=== PATIENT | female | born 2000 | race Hispanic/Latino ===

== ENCOUNTER 2022-01-17 09:56 | Outpatient (CLI) | payer OTHER | END 2022-01-17 09:57 | disposition home or self-care (01) | LOC: CSHULT 09:56 | PROVIDERS: ATTEND Family Medicine | DX: Z34.03 Encounter for supervision of normal first pregnancy, third trimester (principal); Z3A.29 29 weeks gestation of pregnancy | CPT/HCPCS: 76805 ==

== ENCOUNTER 2022-02-04 17:48 | Observation (INO) | payer OTHER ==
[2022-02-04] MEDS ORDERED: Promethazine HCl 25 MG/ML VIAL IM PRN (18:24)
[2022-02-04] MEDS ORDERED: hydrALAZINE 20 MG/ML VIAL SLOW IVP PRN (18:24)
[2022-02-04] MEDS ORDERED: Ondansetron PF 4 MG/2 ML Vial IVP PRN (18:24)
[2022-02-04] MEDS: Acetaminophen 500 MG TAB PO PRN (19:41)
[2022-02-04 21:05] LABS: Mean Corpuscular HGB CONC 34.1 g/dL (32.0-36.0); Mean Corpuscular Hemoglobin 28.9 pg (27.0-33.0); Mean Corpuscular Volume 84.7 fl (81.6-98.3); Mean Platelet Volume 10.6 fl (7.4-10.4); Platelet Count 181 10x3/uL (150-450); RBC Distribution Width 13.3 % (11.5-14.5); Red Blood Cell (RBC) Count 3.46 10x6/uL (3.90-5.03)
[2022-02-04 21:45] LABS: ALT (SGPT) 14 U/L (8-55); AST (SGOT) 15 U/L (5-34); Albumin 3.1 g/dL (3.5-5.0); Alkaline Phosphatase 111 U/L (40-110); Anion Gap 12 mmol/L (10-20); BUN (Urea Nitrogen) 7 mg/dL (7.0-18.7); Bilirubin, Total 0.3 mg/dL (0.2-1.2); Calc. Creatinine Clearance 0 mL/min (70-130); Calcium 8.7 mg/dL (7.8-10.44); Carbon Dioxide 22 mmol/L (22-29); Chloride 106 mmol/L (98-107); Estimated GFR 128; Globulin 2.8 g/dL (2.4-3.5); Glucose 131 mg/dL (70-105); Potassium 3.7 mmol/L (3.5-5.1); Protein, Total 5.9 g/dL (6.0-8.3); Sodium 136 mmol/L (136-145)
[2022-02-05] MEDS: Acetaminophen 500 MG TAB PO PRN (04:34)
[2022-02-07 11:37] VITALS: BMI 28.8
[2022-02-07 11:39] VITALS: BP 108/62; TEMP 98.4
== END 2022-02-05 14:50 | disposition home health service (06) ==
LOC: CSHLD/OP 17:48 → CSHANTE 20:41 → INTOOBSV 20:41
PROVIDERS: ADMIT Family Medicine; ATTEND Family Medicine
DX: O99.413 Diseases of the circulatory system complicating pregnancy, third trimester (principal); R00.2 Palpitations; O99.343 Other mental disorders complicating pregnancy, third trimester; F41.1 Generalized anxiety disorder; Z3A.29 29 weeks gestation of pregnancy
CPT/HCPCS: 80053; 85027; 93005; 93010; 93306; 99285

== ENCOUNTER 2022-03-10 20:20 | Day surgery (SDC) | payer OTHER ==
[2022-03-10] MEDS ORDERED: hydrALAZINE 20 MG/ML VIAL SLOW IVP PRN (20:48)
[2022-03-10 20:51] VITALS: BMI 31.9
[2022-03-10 22:16] LABS: Bilirubin Neg (Negative); Blood, Urine 50 (Negative); CAUTI Indications for Culture Dysuria,urgency,freq; Clarity Cloudy (Clear); Glucose, Urine (Dipstick) Normal (Negative); Ketone, Urine 5 mg/dL (Negative); Leukocyte 25 (Negative); Nitrite Negative (Negative); Protein, Urine (Dipstick) 30 mg/dl (Neg-Trace)
[2022-03-10 22:17] LABS: #Monocytes 0.4 10x3/uL (0.0-1.1); #Neutrophils 4.3 10x3/uL (1.5-8.4); %Basophils 0.2 % (0.0-2.0); %Eosinophils 0.4 % (0.0-6.0); %Lymphocytes 17.5 % (18.0-47.0); %Monocytes 6.7 % (0.0-10.0); %Neutrophils 74.8 % (40.0-75.0); Hemoglobin 9.6 g/dL (12.0-15.5); Mean Corpuscular HGB CONC 33.1 g/dL (32.0-36.0); Mean Corpuscular Hemoglobin 26.4 pg (27.0-33.0); Mean Corpuscular Volume 79.9 fl (81.6-98.3); Mean Platelet Volume 11.6 fl (7.4-10.4); Platelet Count 175 10x3/uL (150-450); RBC Distribution Width 13.6 % (11.5-14.5); Red Blood Cell (RBC) Count 3.63 10x6/uL (3.90-5.03); White Blood Cell (WBC) Count 5.7 10x3/uL (3.5-10.5)
[2022-03-10 22:24] LABS: Urine Culture Reflex No No
[2022-03-10 22:29] LABS: Bacteria/HPF Rare-Few HPF (None Seen); Renal Epithelial 0-3 HPF (None Seen)
[2022-03-10 22:31] LABS: ALT (SGPT) 11 U/L (8-55); AST (SGOT) 19 U/L (5-34); Alkaline Phosphatase 151 U/L (40-110); Anion Gap 13 mmol/L (10-20); BUN (Urea Nitrogen) 9 mg/dL (7.0-18.7); Bilirubin, Total 0.3 mg/dL (0.2-1.2); Calc. Creatinine Clearance 138 mL/min (70-130); Calcium 9.5 mg/dL (7.8-10.44); Carbon Dioxide 21 mmol/L (22-29); Chloride 106 mmol/L (98-107); Estimated GFR 99; Globulin 3.1 g/dL (2.4-3.5); Glucose 108 mg/dL (70-105); Potassium 3.7 mmol/L (3.5-5.1); Protein, Total 6.1 g/dL (6.0-8.3); Sodium 136 mmol/L (136-145)
[2022-03-10 22:31] LABS: Creatinine, Urine 256.34 mg/dL (47-110)
== END 2022-03-10 22:55 | disposition home or self-care (01) ==
LOC: CSHLD/OP 20:20
PROVIDERS: ATTEND Family Medicine
DX: O60.03 Preterm labor without delivery, third trimester (principal); Z3A.36 36 weeks gestation of pregnancy; Z79.899 Other long term (current) drug therapy
CPT/HCPCS: 80053; 81001; 82570; 84156; 85025

== ENCOUNTER 2022-03-12 10:25 | Day surgery (SDC) | payer OTHER ==
[2022-03-12] MEDS ORDERED: Ondansetron PF 4 MG/2 ML Vial IVP PRN (10:52)
[2022-03-12] MEDS ORDERED: Lactated Ringer's 1,000 ML IV SCH ×2 (11:00)
[2022-03-12] MEDS ORDERED: Acetaminophen 500 MG TAB PO SCH (11:00)
[2022-03-12 11:26] VITALS: BP 125/66; TEMP 101.2
[2022-03-12 11:35] VITALS: BMI 31.9
[2022-03-12 12:04] LABS: SARS-CoV-2 NAA Rapid Test Not Detected (NotDetected)
[2022-03-12 12:17] LABS: Bilirubin 1+ (Negative); Blood, Urine 25 (Negative); CAUTI Indications for Culture Fever or rigors; Clarity Cloudy (Clear); Glucose, Urine (Dipstick) Normal (Negative); Ketone, Urine 50 mg/dL (Negative); Leukocyte 25 (Negative); Nitrite Negative (Negative); Protein, Urine (Dipstick) 100 mg/dl (Neg-Trace); Specific Gravity, Urine 1.025 (1.005-1.030)
[2022-03-12 12:24] LABS: Urine Culture Reflex No No
[2022-03-12 12:25] LABS: Bacteria/HPF 1+ HPF (None Seen)
[2022-03-12] MEDS ORDERED: Calcium Carbonate 500 MG ChewTAB PO SCH (13:45)
[2022-03-12 14:01] LABS: Bilirubin Neg (Negative); Blood, Urine Negative (Negative); Clarity Clear (Clear); Glucose, Urine (Dipstick) Normal (Negative); Ketone, Urine 50 mg/dL (Negative); Leukocyte Negative (Negative); Nitrite Negative (Negative); Protein, Urine (Dipstick) Negative (Neg-Trace); Urobilinogen Normal mg/dL (Less than 2); pH, Urine 6.5 (5.0-9.0)
[2022-03-12 14:12] LABS: #Monocytes 0.2 10x3/uL (0.0-1.1); #Neutrophils 5.6 10x3/uL (1.5-8.4); %Basophils 0.2 % (0.0-2.0); %Lymphocytes 4.2 % (18.0-47.0); %Monocytes 2.8 % (0.0-10.0); %Neutrophils 92.6 % (40.0-75.0); Hemoglobin 10.1 g/dL (12.0-15.5); Mean Corpuscular HGB CONC 33.8 g/dL (32.0-36.0); Mean Corpuscular Hemoglobin 26.9 pg (27.0-33.0); Mean Corpuscular Volume 79.5 fl (81.6-98.3); Mean Platelet Volume 12.3 fl (7.4-10.4); Platelet Count 167 10x3/uL (150-450); RBC Distribution Width 14.2 % (11.5-14.5); Red Blood Cell (RBC) Count 3.76 10x6/uL (3.90-5.03)
== END 2022-03-12 14:40 | disposition home health service (06) ==
LOC: CSHLD/OP 10:25
PROVIDERS: ATTEND Family Medicine
DX: O26.893 Other specified pregnancy related conditions, third trimester (principal); R50.9 Fever, unspecified; O21.2 Late vomiting of pregnancy; Z3A.36 36 weeks gestation of pregnancy; Z20.822 Contact with and (suspected) exposure to COVID-19
CPT/HCPCS: 81001; 85025; 96360; 96361; 96375; 99285; J2405

== ENCOUNTER 2022-05-13 01:34 | Inpatient (IN) | payer OTHER ==
[2022-05-13 02:47] LABS: #Eosinphils 0.1 10x3/uL (0.0-0.5); #Monocytes 0.5 10x3/uL (0.0-1.1); %Basophils 0.2 % (0.0-2.0); %Eosinophils 1.3 % (0.0-6.0); %Lymphocytes 11.6 % (18.0-47.0); %Monocytes 5.5 % (0.0-10.0); %Neutrophils 81.2 % (40.0-75.0); Hemoglobin 11.5 g/dL (12.0-15.5); Mean Corpuscular Hemoglobin 26.3 pg (27.0-33.0); Mean Corpuscular Volume 79.9 fl (81.6-98.3); Mean Platelet Volume 9.4 fl (7.4-10.4); Platelet Count 329 10x3/uL (150-450); RBC Distribution Width 14.7 % (11.5-14.5); Red Blood Cell (RBC) Count 4.37 10x6/uL (3.90-5.03); White Blood Cell (WBC) Count 8.6 10x3/uL (3.5-10.5)
[2022-05-13] MEDS ORDERED: Ketorolac Tromethamine 30 MG/ML VIAL ONE ×3 (03:03→12:46)
[2022-05-13 03:04] LABS: ALT (SGPT) 183 U/L (8-55); AST (SGOT) 325 U/L (5-34); Albumin 4.4 g/dL (3.5-5.0); Alkaline Phosphatase 187 U/L (40-110); Anion Gap 15 mmol/L (10-20); BUN (Urea Nitrogen) 15 mg/dL (7.0-18.7); Bilirubin, Total 0.7 mg/dL (0.2-1.2); Calc. Creatinine Clearance 0 mL/min (70-130); Calcium 9.4 mg/dL (7.8-10.44); Carbon Dioxide 22 mmol/L (22-29); Chloride 108 mmol/L (98-107); Estimated GFR 122; Globulin 3.3 g/dL (2.4-3.5); Glucose 102 mg/dL (70-105); Lipase 30 U/L (8-78); Potassium 3.8 mmol/L (3.5-5.1); Protein, Total 7.7 g/dL (6.0-8.3); Sodium 141 mmol/L (136-145)
[2022-05-13] MEDS ORDERED: Ondansetron PF 4 MG/2 ML Vial ONE ×2 (03:04→11:01)
[2022-05-13] MEDS ORDERED: Piperacillin/Tazobactam 4.5 GM VIAL ONE (04:05)
[2022-05-13 04:47] LABS: Bilirubin Neg (Negative); Blood, Urine 250 (Negative); Clarity Slightly Cloudy (Clear); Glucose, Urine (Dipstick) Normal (Negative); Ketone, Urine Negative (Negative); Leukocyte 25 (Negative); Nitrite Negative (Negative); Protein, Urine (Dipstick) Negative (Neg-Trace); Urobilinogen Normal mg/dL (Less than 2)
[2022-05-13 04:51] LABS: Pregnancy Test - Urine (BHCG) Negative (Negative); Pregu Control Background? CLEAR/WHITE (CLR/WHITE); Pregu Control Bar Appear? YES (CONTROL BAR)
[2022-05-13 04:53] LABS: SARS-CoV-2 NAA Rapid Test Not Detected (NotDetected)
[2022-05-13 04:56] LABS: Bacteria/HPF None Seen HPF (None Seen); RBC/HPF 21-50 HPF (0-3); Renal Epithelial 0-3 HPF (None Seen); Squamous Epithelial None Seen HPF (0-3); WBC/HPF 0-3 HPF (0-3)
[2022-05-13] MEDS ORDERED: EPINEPHrine 1 MG/ML AMP ONE (10:20)
[2022-05-13] MEDS ORDERED: Bupivacaine 0.25% HCL 30 ML VIAL ONE (10:20)
[2022-05-13] MEDS ORDERED: Iopamidol 30 ML ONE (10:21)
[2022-05-13] MEDS ORDERED: Glycopyrrolate 0.2 MG/ML 5 ML SYRINGE ONE (11:01)
[2022-05-13] MEDS ORDERED: Dexamethasone 20 MG/5 ML VIAL ONE (11:01)
[2022-05-13] MEDS ORDERED: Fentanyl 250 MCG/5 ML VIAL ONE (11:01)
[2022-05-13] MEDS ORDERED: Rocuronium Bromide 10 MG/ML (10ML VIAL) ONE (11:01)
[2022-05-13] MEDS ORDERED: PROPOFOL 40 ML ONE (11:01)
[2022-05-13] MEDS ORDERED: Lidocaine 1% PF 5 ML VIAL ONE (11:01)
[2022-05-13] MEDS ORDERED: CEFAZOLIN 1 GM VIAL ONE (11:47)
[2022-05-13] MEDS ORDERED: SUGAMMADEX SODIUM 200 MG/2 ML VIAL ONE (13:00)
[2022-05-13] MEDS ORDERED: Fentanyl 100 MCG/2 ML VIAL ONE (13:24)
[2022-05-13] MEDS ORDERED: Iopamidol 300 61% 100 ML VIAL FS ONE (13:36)
[2022-05-13] MEDS: Lactated Ringer's 1,000 ML IV SCH (14:30)
[2022-05-13 15:03] VITALS: BMI 27.6
[2022-05-13] MEDS: Acetaminophen 325 MG TAB PO SCH ×2 (15:15→21:28)
[2022-05-13] MEDS: HYDROcodone/Acetaminophen 5/325 mg Tablet PO PRN (16:05)
[2022-05-13] MEDS ORDERED: FLU VACC QS2022-23(6MOS UP)/PF 60 MCG/0.5 ML SYRINGE IM ONE (17:15)
[2022-05-13] MEDS: Ibuprofen 400 MG TAB PO SCH (20:13)
[2022-05-14] MEDS: Lactated Ringer's 1,000 ML IV SCH ×2 (00:54→08:38)
[2022-05-14] MEDS: Acetaminophen 325 MG TAB PO SCH ×4 (02:57→21:00)
[2022-05-14] MEDS: Ibuprofen 400 MG TAB PO SCH ×2 (05:00→11:30)
[2022-05-14 05:17] LABS: #Monocytes 0.3 10x3/uL (0.0-1.1); #Neutrophils 5.1 10x3/uL (1.5-8.4); %Lymphocytes 8.9 % (18.0-47.0); %Monocytes 5.6 % (0.0-10.0); %Neutrophils 85.3 % (40.0-75.0); Hemoglobin 11.4 g/dL (12.0-15.5); Mean Corpuscular HGB CONC 33.7 g/dL (32.0-36.0); Mean Corpuscular Volume 79.9 fl (81.6-98.3); Mean Platelet Volume 10.3 fl (7.4-10.4); Platelet Count 356 10x3/uL (150-450); RBC Distribution Width 14.8 % (11.5-14.5); Red Blood Cell (RBC) Count 4.23 10x6/uL (3.90-5.03); White Blood Cell (WBC) Count 5.9 10x3/uL (3.5-10.5)
[2022-05-14 05:38] LABS: ALT (SGPT) 1235 U/L (8-55); AST (SGOT) 1112 U/L (5-34); Albumin 3.8 g/dL (3.5-5.0); Alkaline Phosphatase 395 U/L (40-110); Anion Gap 13 mmol/L (10-20); BUN (Urea Nitrogen) 9 mg/dL (7.0-18.7); Bilirubin, Direct 2.5 mg/dL (0.1-0.3); Bilirubin, Total 3.3 mg/dL (0.2-1.2); Calc. Creatinine Clearance 160 mL/min (70-130); Calcium 9.5 mg/dL (7.8-10.44); Carbon Dioxide 22 mmol/L (22-29); Chloride 108 mmol/L (98-107); Estimated GFR 129; Glucose 107 mg/dL (70-105); Potassium 3.9 mmol/L (3.5-5.1); Protein, Total 6.9 g/dL (6.0-8.3); Sodium 139 mmol/L (136-145)
[2022-05-14] MEDS: HYDROcodone/Acetaminophen 5/325 mg Tablet PO PRN (08:39)
[2022-05-14] MEDS ORDERED: Rocuronium Bromide 10 MG/ML (10ML VIAL) ONE (16:26)
[2022-05-14] MEDS ORDERED: Lidocaine 2% MPF 10 ML AMP (For Epidural Use) ONE (16:26)
[2022-05-14] MEDS ORDERED: Midazolam HCl 2 mg/2 ml Vial ONE (16:26)
[2022-05-14] MEDS ORDERED: PROPOFOL 20 ML ONE (16:26)
[2022-05-14] MEDS ORDERED: Fentanyl 100 MCG/2 ML VIAL ONE (16:26)
[2022-05-14] MEDS ORDERED: Iopamidol 30 ML ONE (16:31)
[2022-05-14] MEDS ORDERED: Indomethacin 50 MG SUPP ONE (16:31)
[2022-05-14] MEDS ORDERED: Dexamethasone 4 mg/ml Vial ONE (17:19)
[2022-05-14] MEDS ORDERED: Ondansetron PF 4 MG/2 ML Vial ONE (17:19)
[2022-05-14] MEDS ORDERED: Piperacillin/Tazobactam 3.375 GM in Sodium Chloride 0.9% 100 ML IVPB SCH (18:00)
[2022-05-14] MEDS ORDERED: Glycopyrrolate 0.2 MG/ML 5 ML SYRINGE ONE (18:02)
[2022-05-14] MEDS: Piperacillin/Tazobactam 3.375 GM in Sodium Chloride 0.9% 100 ML IVPB SCH (22:58)
[2022-05-15] MEDS: Acetaminophen 325 MG TAB PO SCH ×2 (02:00→09:09)
[2022-05-15] MEDS: Lactated Ringer's 1,000 ML IV SCH ×2 (03:30→05:00)
[2022-05-15 05:46] LABS: ALT (SGPT) 1069 U/L (8-55); AST (SGOT) 423 U/L (5-34); Albumin 3.7 g/dL (3.5-5.0); Alkaline Phosphatase 372 U/L (40-110); Anion Gap 16 mmol/L (10-20); BUN (Urea Nitrogen) 10 mg/dL (7.0-18.7); Bilirubin, Total 2.1 mg/dL (0.2-1.2); Calc. Creatinine Clearance 151 mL/min (70-130); Calcium 8.9 mg/dL (7.8-10.44); Carbon Dioxide 22 mmol/L (22-29); Chloride 107 mmol/L (98-107); Estimated GFR 127; Glucose 93 mg/dL (70-105); Lipase 22 U/L (8-78); Potassium 3.8 mmol/L (3.5-5.1); Protein, Total 6.7 g/dL (6.0-8.3); Sodium 141 mmol/L (136-145)
[2022-05-15 05:48] LABS: Hemoglobin 10.7 g/dL (12.0-15.5); Mean Corpuscular HGB CONC 33.1 g/dL (32.0-36.0); Mean Corpuscular Hemoglobin 26.5 pg (27.0-33.0); Mean Platelet Volume 10.1 fl (7.4-10.4); Platelet Count 334 10x3/uL (150-450); RBC Distribution Width 14.6 % (11.5-14.5); Red Blood Cell (RBC) Count 4.04 10x6/uL (3.90-5.03); White Blood Cell (WBC) Count 5.1 10x3/uL (3.5-10.5)
[2022-05-15 05:55] LABS: #Monocytes 0.2 10x3/uL (0.0-1.1); #Neutrophils 4.3 10x3/uL (1.5-8.4); %Lymphocytes 12.6 % (18.0-47.0); %Monocytes 3.7 % (0.0-10.0); %Neutrophils 83.3 % (40.0-75.0)
[2022-05-15] MEDS: Piperacillin/Tazobactam 3.375 GM in Sodium Chloride 0.9% 100 ML IVPB SCH (06:21)
[2022-05-15 11:20] VITALS: BP 132/77; TEMP 98.4
== END 2022-05-15 13:20 | disposition home or self-care (01) | DRG 419 ==
LOC: CSHERS 01:34 → CSHTELE 13:23 → OBSVTOIN 05-15 12:33
PROVIDERS: ADMIT Surgery; ATTEND Surgery
PROC: 0FT44ZZ Resection of Gallbladder, Percutaneous Endoscopic Approach (ICD-10-PCS; principal; 2022-05-13)
PROC: 0FC98ZZ Extirpation of Matter from Common Bile Duct, Via Natural or Artificial Opening Endoscopic (ICD-10-PCS; 2022-05-14)
PROC: BF141ZZ Fluoroscopy of Gallbladder, Bile Ducts and Pancreatic Ducts using Low Osmolar Contrast (ICD-10-PCS; 2022-05-14)
DX: K80.62 Calculus of gallbladder and bile duct with acute cholecystitis without obstruction (principal); K66.0 Peritoneal adhesions (postprocedural) (postinfection); F41.9 Anxiety disorder, unspecified; Z20.822 Contact with and (suspected) exposure to COVID-19
CPT/HCPCS: 36415; 36416; 74177; 74181; 74330; 76705; 80048; 80053; 80076; 81003; 81015; 81025; 83690; 85025; 88304; 93005; 93010; 96361; 96365; 96375; C1725; C1889; G0378; J0171; J0690; J1100; J1611; J1885; J2250; J2405; J2543; J2704; J3010; J3490; J7120; Q9967; S0020; U0002

== ENCOUNTER 2022-08-16 09:10 | Emergency (ER) | payer OTHER ==
[2022-08-16 10:04] LABS: SARS-CoV-2 NAA Rapid Test Not Detected (NotDetected)
== END 2022-08-16 11:37 | disposition home or self-care (01) ==
LOC: CSHERS 09:10
DX: J01.90 Acute sinusitis, unspecified (principal); G43.909 Migraine, unspecified, not intractable, without status migrainosus; Z20.822 Contact with and (suspected) exposure to COVID-19
CPT/HCPCS: 96374; 96375